=== PATIENT | female | born 1950 | race Hispanic/Latino ===

== ENCOUNTER → 2017-11-23 | Outpatient (CLI) | payer OTHER | LOC: RAH 11:28 | PROVIDERS: ATTEND Family Medicine | DX: R10.32 Left lower quadrant pain (principal); Z90.710 Acquired absence of both cervix and uterus | CPT/HCPCS: 76856 ==

== ENCOUNTER → 2017-12-13 | Outpatient (CLI) | payer OTHER | END | disposition home or self-care (01) | LOC: RAH 09:21 | PROVIDERS: ATTEND Family Medicine | DX: Z12.31 Encounter for screening mammogram for malignant neoplasm of breast (principal) | CPT/HCPCS: 77067 ==

== ENCOUNTER → 2018-01-05 | Outpatient (CLI) | payer OTHER | END | disposition home or self-care (01) | LOC: OIH 16:19 | PROVIDERS: ATTEND Family Medicine | DX: Z01.818 Encounter for other preprocedural examination (principal); I70.0 Atherosclerosis of aorta | CPT/HCPCS: 71046 ==

== ENCOUNTER → 2018-05-23 | Outpatient (CLI) | payer OTHER | END | disposition home or self-care (01) | LOC: RAH 12:28 | PROVIDERS: ATTEND Family Medicine | DX: M47.892 Other spondylosis, cervical region (principal); M43.22 Fusion of spine, cervical region; K21.9 Gastro-esophageal reflux disease without esophagitis; M17.0 Bilateral primary osteoarthritis of knee; I10 Essential (primary) hypertension | CPT/HCPCS: 72040; 74220 ==

== ENCOUNTER → 2018-06-14 | Outpatient (CLI) | payer OTHER | END | disposition home or self-care (01) | LOC: RAH 10:09 | PROVIDERS: ATTEND Internal Medicine Gastroenterology | DX: R13.12 Dysphagia, oropharyngeal phase (principal); R63.3 Feeding difficulties | CPT/HCPCS: 74230 ==

== ENCOUNTER → 2018-09-07 | Outpatient (CLI) | payer OTHER | END | disposition home or self-care (01) | LOC: RAH 17:11 | PROVIDERS: ATTEND Family Medicine | DX: M25.512 Pain in left shoulder (principal) | CPT/HCPCS: 73030 ==

== ENCOUNTER → 2019-01-20 | Outpatient (CLI) | payer OTHER | END | disposition home or self-care (01) | LOC: RAH 10:00 | PROVIDERS: ATTEND Family Medicine | DX: Z12.31 Encounter for screening mammogram for malignant neoplasm of breast (principal) | CPT/HCPCS: 77067 ==

== ENCOUNTER → 2019-02-09 | Outpatient (CLI) | payer OTHER ==
[~2019-02-09] MED LIST: REGADENOSON 0.4 MG/5 ML PF SYG IVP SCH
== END | disposition home or self-care (01) ==
LOC: RAH 09:16
PROVIDERS: ATTEND Family Medicine
DX: I20.9 Angina pectoris, unspecified (principal); I10 Essential (primary) hypertension
CPT/HCPCS: 78452; 93017; 96374; A9500 ×2; J2785

== ENCOUNTER → 2019-02-16 | Outpatient (CLI) | payer OTHER | END | disposition home or self-care (01) | LOC: RAH 08:54 | PROVIDERS: ATTEND Family Medicine | DX: I11.9 Hypertensive heart disease without heart failure (principal) | CPT/HCPCS: 93306 ==

== ENCOUNTER → 2019-02-27 | Outpatient (CLI) | payer OTHER ==
[~2019-02-27] MED LIST changes: -REGADENOSON 0.4 MG/5 ML PF SYG IVP SCH; +SODIUM CHLORIDE 0.9% 1000ML 1,000 ML IV ONE
== END | disposition home or self-care (01) ==
LOC: RAH 13:54
PROVIDERS: ATTEND Neurological Surgery
DX: M50.323 Other cervical disc degeneration at C6-C7 level (principal); M47.892 Other spondylosis, cervical region; M25.48 Effusion, other site; I11.9 Hypertensive heart disease without heart failure
CPT/HCPCS: 72125; 72141; J7030

== ENCOUNTER 2019-03-24 08:57 | Day surgery (SDC) | payer OTHER ==
[2019-03-21 12:26] VITALS: BP 142/80
[2019-03-21 12:27] LABS: BASOPHILS % (AUTO) 0.7 % (0.0-5.0); EOSINOPHILS % (AUTO) 2.8 % (0.0-8.0); HEMATOCRIT 37.4 % (36-48); MEAN CORPUSCULAR HEMOGLOBIN 29.5 pg (27.0-33.0); MEAN CORPUSCULAR HGB CONC 33.3 g/dL (32.0-36.0); MEAN CORPUSCULAR VOLUME 88.5 fL (79-99); MONOCYTES % (AUTO) 7.5 % (3.0-13.0); PLATELET COUNT (AUTO) 257 K/uL (130-400); RED BLOOD CELL COUNT(AUTO) 4.22 MIL/uL (4.00-5.50); RED CELL DISTRIBUTION WIDTH 13.9 % (11.0-15.5); WHITE BLOOD COUNT (AUTO) 6.2 K/uL (4.8-10.8)
[2019-03-21 12:29] LABS: APPEARANCE,URINE Clear (CLEAR); BILIRUBIN,URINE Negative (NEGATIVE); COLOR,URINE Yellow (YELLOW); GLUCOSE, URINE (UA) Negative (NEGATIVE); KETONES,URINE Negative (NEGATIVE); LEUKOCYTE ESTERASE ,URINE Negative (NEGATIVE); NITRATE,URINE Negative (NEGATIVE); OCCULT BLOOD,URINE Negative (NEGATIVE); PROTEIN,URINE Negative (NEGATIVE); UROBILINOGEN,URINE 0.2 mg/dL (0.2-1.0)
[2019-03-21 12:35] LABS: CREATININE 0.7 mg/dL (0.5-1.5); POTASSIUM 3.7 mmol/L (3.5-5.1)
[2019-03-21 12:39] LABS: INR 0.99 (0.85-1.15); PARTIAL THROMBOPLASTIN TIME 27.5 SEC (26.3-35.5); PROTHROMBIN TIME 10.4 SEC (9.6-11.6)
--- NOTE | 2019-03-21 12:50 | NUR ---
allergies informed yvette carrillo of pt being allergic to iodine and methylprednisolone. she will inform dr. dueñas and call me back.
--- NOTE | 2019-03-23 13:18 | NUR ---
ALLERGIES: SPOKE WITH DR. CHANDNI TREJO/ CHRISTINA " STATED IT'S OK TO GIVE SOLU MEDROL IV. DAY OF PROCEDURE.
[~2019-03-24] VITALS: Ht 147.3 cm; Wt 58.9 kg
[2019-03-24] VITALS (14 sets, daily range): BP systolic 142–180; BP diastolic 63–86
[~2019-03-24 08:57] MED LIST changes: +ALPR0.255 PO; +METHYLPREDNISOLONE SOD SUCC 125MG/2ML VIAL IVP PRN; +NIFE30TA98 PO; +OXYB5TAB10 PO; +PHARMACY COMMUNICATION MISC SCH; +SODI30SP3 NS
[2019-03-24] MEDS ORDERED: PHARMACY COMMUNICATION MISC SCH (09:25)
--- NOTE | 2019-03-24 09:29 | NUR ---
SPOKE TO DR. LOPEZ, HE STATED HE CLARIFIED PT NOT ALLERGIC TO METHYLPREDNISOLONE.
[2019-03-24] MEDS ORDERED: METHYLPREDNISOLONE SOD SUCC 125MG/2ML VIAL ONE (11:48)
[2019-03-24] MEDS ORDERED: VERAPAMIL HCL 2.5 MG/ML VIAL ONE (11:57)
[2019-03-24] MEDS ORDERED: FENTANYL CITRATE PF 50 MCG/1 ML 2ML VIAL ONE (11:57)
[2019-03-24] MEDS ORDERED: MIDAZOLAM HCL 1 MG/ML 2ML VIAL ONE (11:57)
[2019-03-24] MEDS ORDERED: IOHEXOL-350 50ML VIAL IV ONE (11:57)
[2019-03-24] MEDS ORDERED: LIDOCAINE HCL 1% 20 ML VIAL ONE (11:57)
[2019-03-24] MEDS ORDERED: NITROGLYCERIN 5 MG/ML 10 ML VIAL IV ONE (11:57)
[2019-03-24] MEDS ORDERED: HEPARIN SODIUM 1000UNIT/ML 10ML VIAL ONE (11:57)
[2019-03-24] MEDS ORDERED: IOHEXOL-350 75 ML VIAL IV ONE (12:02)
[2019-03-24] MEDS ORDERED: ATROPINE SULFATE 0.1 MG/ML 10 ML SYG IVP ONE (12:35)
[2019-03-24] MEDS ORDERED: SODIUM CHLORIDE 0.9% 1000ML 1,000 ML IV SCH (12:55)
--- NOTE | 2019-03-24 16:30 | NUR ---
BLEEDING INFORMED NEIL DELAROSA OF PT BLEEDING TO SITE AFTER TRBAND REMOVED. ORDERS RECEIVED TO APPLY MANUAL PRESSURE, RE-APPLY TRBAND, AND INFORM DR. LOPEZ OF SITUATION.
--- NOTE | 2019-03-24 16:35 | NUR ---
PAGED DR. LOPEZ PAGED. WILL AWAIT RESPONSE.
--- NOTE | 2019-03-24 19:30 | NUR ---
NURSING PT ARRIVED FROM [facility] IN BY BED, OLIVIER, [id number]. C/O PAIN TO RT WRIST, RADIAL BAND IN PLACE NO ACTIVE BLEEDING OR HEMATOMA TO RT WRIST. FOLLOWED PROTOCOL FOR RADIAL BAND REMOVAL: RADIAL BAND HAS 14CC AIR IN BAND: RELEASED 2ML Q 15 MINS : 1400- 1415 1430 1445 1500 1515 1530 APPLIED 4X4 GAUZE AND DRESSING TO RT WRIST, NO BLEEDING OR HEMATOMA AT 1630: PT SITTING UP AT BEDSIDE, READY FOR D/C, PT DRESSING AT BEDSIDE, RADIAL SITE BEGAN OOZING WHILE PT WAS PUTTING ON HER BRA AND SHIRT, REBEKAH SNOW ASSISTING PT AT TIME OF INCIDENT. PT ALERT STABLE, STATED HER RT HAND HURTS. REMOVED DRESSING, ACTIVE BLEEDING WAS NOTED, NO HEMATOMA, MILD BRUISING AROUND PUNCTURE SITE. HOLDING MANUAL PRESSURE TO SITE FROM [id number]. CALLED [facility], DION NARANJO CAME TO ROOM, ASSESSED PT , RE-APPLIED TR-BAND AT 1647 WITH 10CC AIR. 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 WAS INSTRUCTED TO FOLLOW RADIAL BAND REMOVAL PROTOCOL, MONITOR PT THEN NOTIFY HER IF ANY ACTIVE BLEEDING AGAIN ONCE BAND IS REMOVED BEFORE PT IS DISCHARGED HOME. RELEASED 2ML Q 15 MIN: 1808- 1823 1838 1853 ON ASSESSMENT: RT WRIST HAS NO BLEEDING OR HEMATOMA, BRUISING NOTED TO PUNCTURE SITE AND ABOVE WHERE BAND WAS PLACED. MARKED WRIST BRUISES. APPLY 4X4 GAUZE AND KERLIX WRAP TO RT WRIST. PT STABLE, C/O OF MILD DISCOMFORT TO WRIST. ELEVATED RT HAND ON PILLOW AND APPLIED ICE PACK. REPORTED PROGRESS TO Carley BEAN NP AT 1925, PT OK TO BE DISCHARGED. POST CARE INSTRUCTIONS AND PRESCRIPTIONS GIVEN TO SONS. INSTRUCTED TO MONITOR RT WRIST/ARM CLOSELY, CONTINUE TO ELEVATE AND APPLY ICE NEEDED TODAY, INSTRUCTED ABSOLUTELY NO PRESSURE TO MANIPULATION WITH RT HAND UNTIL TOMORROW MORNING. INSTRUCTED SONS TO TAKE PT TO ER IMMEDIATELY IF ACTIVE BLEEDING OCCURS OR HEMATOMA. BOTH SONS VERBALIZED UNDERSTANDING. PT PLACED IN WHEELCHAIR , DRIVEN HOME BY SON.
== END 2019-03-24 19:30 | disposition home or self-care (01) ==
LOC: DAH 08:57
PROVIDERS: ATTEND Internal Medicine Cardiovascular Disease
DX: I25.118 Atherosclerotic heart disease of native coronary artery with other forms of angina pectoris (principal); I10 Essential (primary) hypertension; M19.90 Unspecified osteoarthritis, unspecified site; Z88.1 Allergy status to other antibiotic agents; Z88.3 Allergy status to other anti-infective agents; Z88.8 Allergy status to other drugs, medicaments and biological substances; Z79.899 Other long term (current) drug therapy; Z98.890 Other specified postprocedural states; Z82.49 Family history of ischemic heart disease and other diseases of the circulatory system; Z83.3 Family history of diabetes mellitus; Z79.01 Long term (current) use of anticoagulants
CPT/HCPCS: 36415; 71045; 80048; 81003; 85025; 85610; 85730; 93005; 93458; A4606; C1769 ×3; C1894 ×2; J1644 ×2; J2250; J2930; J3010; J3490 ×2; J7030; Q9967 ×2; 99156; 99157; J0461

== ENCOUNTER → 2019-03-30 | Outpatient (CLI) | payer OTHER ==
[~2019-03-30] MED LIST changes: +CIPR7.5D OT; +CYCL30DR OP; -METHYLPREDNISOLONE SOD SUCC 125MG/2ML VIAL IVP PRN; +NITR0.4T50 SL; -PHARMACY COMMUNICATION MISC SCH; -SODIUM CHLORIDE 0.9% 1000ML 1,000 ML IV ONE
== END | disposition home or self-care (01) ==
LOC: OIH 09:28
PROVIDERS: ATTEND Family Medicine
DX: I10 Essential (primary) hypertension (principal); M47.815 Spondylosis without myelopathy or radiculopathy, thoracolumbar region
CPT/HCPCS: 71046

== ENCOUNTER → 2019-05-25 | Outpatient (CLI) | payer OTHER ==
[~2019-05-25] MED LIST changes: +ACET-66 PO; +AEC81 PO; -ALPR0.255 PO; +AMIO200T44 PO; +DOCU-275 PO; +FURO20TA6 PO; +METO25TA6 PO; -NIFE30TA98 PO; -NITR0.4T50 SL; -OXYB5TAB10 PO; +OXYB5TAB15 PO; +TRAM50TA4 PO
== END | disposition home or self-care (01) ==
LOC: SHCH 07:52
PROVIDERS: ATTEND Family Medicine
DX: I50.22 Chronic systolic (congestive) heart failure (principal); R06.02 Shortness of breath
CPT/HCPCS: 70220; 71046; 78481; A9512

== ENCOUNTER → 2019-09-11 | Outpatient (CLI) | payer OTHER ==
[~2019-09-11] VITALS: Ht 149.9 cm; Wt 61.2 kg
[~2019-09-11] MED LIST changes: +REGADENOSON 0.4 MG/5 ML PF SYG IVP SCH
== END | disposition home or self-care (01) ==
LOC: SHCH 08:21
PROVIDERS: ATTEND Internal Medicine Cardiovascular Disease
DX: R07.9 Chest pain, unspecified (principal); R06.00 Dyspnea, unspecified; R51 Headache; R00.0 Tachycardia, unspecified
CPT/HCPCS: 78452; 93017; 96374; A9500 ×2; J2785

== ENCOUNTER → 2020-02-14 | Outpatient (CLI) | payer OTHER ==
[~2020-02-14] MED LIST changes: -REGADENOSON 0.4 MG/5 ML PF SYG IVP SCH
== END | disposition home or self-care (01) ==
LOC: OIH 13:47
PROVIDERS: ATTEND Family Medicine
DX: M47.812 Spondylosis without myelopathy or radiculopathy, cervical region (principal); M25.512 Pain in left shoulder; I70.0 Atherosclerosis of aorta
CPT/HCPCS: 72040; 73030

== ENCOUNTER → 2020-09-10 | Outpatient (CLI) | payer OTHER, MEDICARE | END | disposition home or self-care (01) | LOC: OIH 11:02 | PROVIDERS: ATTEND Family Medicine | DX: S81.801A Unspecified open wound, right lower leg, initial encounter (principal); I70.201 Unspecified atherosclerosis of native arteries of extremities, right leg; M19.071 Primary osteoarthritis, right ankle and foot; X58.XXXA Exposure to other specified factors, initial encounter; Y93.89 Activity, other specified; Y92.89 Other specified places as the place of occurrence of the external cause; Y99.8 Other external cause status | CPT/HCPCS: 73590 ==

== ENCOUNTER → 2020-10-23 | Outpatient (CLI) | payer OTHER, MEDICARE | END | disposition home or self-care (01) | LOC: RAH 13:50 | PROVIDERS: ATTEND Internal Medicine Cardiovascular Disease | DX: M47.816 Spondylosis without myelopathy or radiculopathy, lumbar region (principal) | CPT/HCPCS: 71250; 72100 ==

== ENCOUNTER → 2020-12-12 | Outpatient (CLI) | payer OTHER, MEDICARE | END | disposition home or self-care (01) | LOC: OIH 09:04 | PROVIDERS: ATTEND Family Medicine | DX: M43.13 Spondylolisthesis, cervicothoracic region (principal); M89.48 Other hypertrophic osteoarthropathy, other site | CPT/HCPCS: 72040 ==

== ENCOUNTER → 2021-02-10 | Outpatient (CLI) | payer OTHER, MEDICARE | END | disposition home or self-care (01) | LOC: RAH 08:57 | PROVIDERS: ATTEND Internal Medicine | DX: K21.9 Gastro-esophageal reflux disease without esophagitis (principal); R13.10 Dysphagia, unspecified | CPT/HCPCS: 74240 ==

== ENCOUNTER 2021-08-05 08:27 | Day surgery (SDC) | payer OTHER, MEDICARE ==
[~2021-08-05] VITALS: Ht 154.9 cm; Wt 65.3 kg
[~2021-08-05 08:27] MED LIST changes: +0.9%NACL 1000ML 1,000 ML IV ONE; -ACET-66 PO; -AMIO200T44 PO; +ASPI-1197 PO; -CIPR7.5D OT; -CYCL30DR OP; -DOCU-275 PO; -FURO20TA6 PO; +LOSA25TA41 PO; -OXYB5TAB15 PO; +ROSU10TA28 PO; -SODI30SP3 NS; +SUCR1TAB2 PO; -TRAM50TA4 PO; +UBID100C10 PO
[2021-08-05 09:33] VITALS: BP 162/88
[2021-08-05] MEDS ORDERED: PROPOFOL 10 MG/ML 20ML VIAL IV ONE (10:29)
[2021-08-05 10:50] VITALS: BP 108/57
[2021-08-05 11:00] VITALS: BP 133/70
[2021-08-05 11:12] VITALS: BP 129/71
== END 2021-08-05 11:18 | disposition home or self-care (01) ==
LOC: ENDO 08:27 → DAH 08:27 → ENDO 11:18
PROVIDERS: ATTEND Internal Medicine Gastroenterology
DX: R10.13 Epigastric pain (principal); Z20.822 Contact with and (suspected) exposure to COVID-19; K25.3 Acute gastric ulcer without hemorrhage or perforation; R13.10 Dysphagia, unspecified; K22.89 Other specified disease of esophagus; K21.9 Gastro-esophageal reflux disease without esophagitis; K31.89 Other diseases of stomach and duodenum; K76.0 Fatty (change of) liver, not elsewhere classified; I10 Essential (primary) hypertension; I25.10 Atherosclerotic heart disease of native coronary artery without angina pectoris; F41.9 Anxiety disorder, unspecified; Z90.710 Acquired absence of both cervix and uterus; Z98.1 Arthrodesis status; Z95.1 Presence of aortocoronary bypass graft; Z88.0 Allergy status to penicillin; Z88.8 Allergy status to other drugs, medicaments and biological substances; Z88.1 Allergy status to other antibiotic agents; Z88.3 Allergy status to other anti-infective agents; Z86.010 Personal history of colon polyps; Z98.49 Cataract extraction status, unspecified eye; Z98.890 Other specified postprocedural states; Z83.3 Family history of diabetes mellitus; Z82.49 Family history of ischemic heart disease and other diseases of the circulatory system; Z80.0 Family history of malignant neoplasm of digestive organs; Z79.82 Long term (current) use of aspirin
CPT/HCPCS: 43239; 87635; 88305; 88342; A4215 ×2; A4221; A4222; A4223; A4606; A4620; A4663; C9803; J2704; J7030

== ENCOUNTER → 2021-10-13 | Outpatient (CLI) | payer OTHER, MEDICARE ==
[~2021-10-13] MED LIST changes: -0.9%NACL 1000ML 1,000 ML IV ONE; -AEC81 PO
== END | disposition home or self-care (01) ==
LOC: RAH 11:42
PROVIDERS: ATTEND Family Medicine
DX: M47.812 Spondylosis without myelopathy or radiculopathy, cervical region (principal); M43.5X2 Other recurrent vertebral dislocation, cervical region; R07.82 Intercostal pain; Z98.1 Arthrodesis status
CPT/HCPCS: 71100; 72040

== ENCOUNTER 2021-11-09 13:01 | Emergency (ER) | payer OTHER, MEDICARE ==
[~2021-11-09] VITALS: Ht 152.4 cm; Wt 62.6 kg
[2021-11-09] MEDS ORDERED: NIFEDIPINE 10 MG CAP PO SCH (13:30)
[2021-11-09 13:31] LABS: BASOPHILS % (AUTO) 0.5 % (0.0-5.0); EOSINOPHILS % (AUTO) 2.3 % (0.0-8.0); HEMATOCRIT 41.5 % (36-48); LYMPHOCYTES % (AUTO) 25.7 % (21.0-51.0); MEAN CORPUSCULAR HEMOGLOBIN 28.9 pg (27.0-33.0); MEAN CORPUSCULAR HGB CONC 32.8 g/dL (32.0-36.0); MEAN CORPUSCULAR VOLUME 88.3 fL (79-99); MONOCYTES % (AUTO) 7.6 % (3.0-13.0); NEUTROPHILS % (AUTO) 63.6 % (40.0-77.0); PLATELET COUNT (AUTO) 245 K/uL (130-400); WHITE BLOOD COUNT (AUTO) 6.6 K/uL (4.8-10.8)
[2021-11-09 13:53] LABS: CREATININE 0.6 mg/dL (0.5-1.5); POTASSIUM 3.7 mmol/L (3.5-5.1)
[2021-11-09 14:05] LABS: ALBUMIN 3.8 g/dL (3.5-5.0); BILIRUBIN,TOTAL 0.6 mg/dL (0.2-1.0)
[2021-11-09 14:07] LABS: APPEARANCE,URINE Clear (CLEAR); BILIRUBIN,URINE Negative (NEGATIVE); COLOR,URINE Yellow (YELLOW); GLUCOSE, URINE (UA) Negative (NEGATIVE); KETONES,URINE Negative (NEGATIVE); LEUKOCYTE ESTERASE ,URINE Trace (NEGATIVE); NITRATE,URINE Negative (NEGATIVE); OCCULT BLOOD,URINE Negative (NEGATIVE); PH,URINE 6.5 (5.0-8.0); PROTEIN,URINE Negative (NEGATIVE); UROBILINOGEN,URINE 0.2 mg/dL (0.2-1.0)
[2021-11-09 14:21] VITALS: BP 134/64
[2021-11-09 14:27] LABS: BACTERIA,URINE Rare /HPF (None Seen); RBC,URINE 0-1 /HPF (0-1); WBC,URINE 0-1 /HPF (0-1)
== END 2021-11-09 15:28 | disposition home or self-care (01) ==
LOC: EDH 13:01
DX: H11.31 Conjunctival hemorrhage, right eye (principal); I10 Essential (primary) hypertension; Z88.0 Allergy status to penicillin; Z88.1 Allergy status to other antibiotic agents; Z88.8 Allergy status to other drugs, medicaments and biological substances; Z79.899 Other long term (current) drug therapy; Z79.82 Long term (current) use of aspirin; Z98.890 Other specified postprocedural states
CPT/HCPCS: 36415; 70450; 80053; 81001; 82948; 84484; 85025; 93005

== ENCOUNTER → 2022-07-01 | Outpatient (CLI) | payer OTHER, MEDICARE | END | disposition home or self-care (01) | LOC: RAH 09:40 | PROVIDERS: ATTEND Family Medicine | DX: R10.2 Pelvic and perineal pain (principal); D35.02 Benign neoplasm of left adrenal gland; Z90.710 Acquired absence of both cervix and uterus | CPT/HCPCS: 76700; 76856 ==

== ENCOUNTER 2023-02-23 13:21 | Emergency (ER) | payer OTHER, MEDICARE ==
[~2023-02-23] VITALS: Ht 149.9 cm; Wt 61.7 kg
[2023-02-23 14:30] VITALS: BP 144/67
[2023-02-23] MEDS ORDERED: MUPI22OI2 TP (14:59)
[2023-02-23] MEDS ORDERED: SUCR1TAB28 PO (14:59)
== END 2023-02-23 15:30 | disposition home or self-care (01) ==
LOC: EDH 13:21
DX: S81.812A Laceration without foreign body, left lower leg, initial encounter (principal); K29.70 Gastritis, unspecified, without bleeding; I10 Essential (primary) hypertension; Z79.82 Long term (current) use of aspirin; Z79.899 Other long term (current) drug therapy; Z90.710 Acquired absence of both cervix and uterus; Z98.890 Other specified postprocedural states; Z95.1 Presence of aortocoronary bypass graft; Z88.0 Allergy status to penicillin; Z88.1 Allergy status to other antibiotic agents; Z88.8 Allergy status to other drugs, medicaments and biological substances; Z91.040 Latex allergy status; W18.39XA Other fall on same level, initial encounter; Y93.89 Activity, other specified; Y92.89 Other specified places as the place of occurrence of the external cause; Y99.8 Other external cause status

== ENCOUNTER → 2023-10-29 | Outpatient (CLI) | payer OTHER, MEDICARE ==
[~2023-10-29] MED LIST changes: +MUPI22OI2 TP; +SUCR1TAB28 PO
[2023-10-29 12:23] LABS: CHOLESTEROL 211 mg/dL (<200); HDL CHOLESTEROL 77 mg/dL (35-85); LDL DIRECT 127 mg/dL (0-99); TRIGLYCERIDES 46 mg/dL (30-200)
== END | disposition home or self-care (01) ==
LOC: LAB 10:04
PROVIDERS: ATTEND Internal Medicine Cardiovascular Disease
DX: E78.5 Hyperlipidemia, unspecified (principal)
CPT/HCPCS: 36415; 80061

== ENCOUNTER → 2024-10-27 | Outpatient (CLI) | payer OTHER, MEDICARE ==
[~2024-10-27] MED LIST changes: +ACET-2893 PO; +DICL20GE TP; +LIDO700A30 TP; -ROSU10TA28 PO; +ROSU10TA72 PO
--- NOTE | 2024-10-27 15:16 | HMCIMG ---
PA AND LATERAL CHEST RADIOGRAPH INDICATION: COUGH X 1 MONTH COMPARISON: 04/29/2021 FINDINGS: Median sternotomy wires as well as fixation plates and screws are in appropriate alignment. Heart size is normal. Mild calcific plaque is present along the aortic arch westfall. The pulmonary vascularity and ann appear normal. No abnormal pulmonary parenchymal opacity or consolidation identified. No significant pleural effusion noted. No pneumothorax detected. Mild thoracic spondylosis. IMPRESSION: No radiographic evidence for any acute cardiopulmonary process.
== END | disposition home or self-care (01) ==
LOC: RAH 14:14
PROVIDERS: ATTEND Family Medicine
DX: J20.9 Acute bronchitis, unspecified (principal); R05.9 Cough, unspecified; I70.0 Atherosclerosis of aorta; M47.814 Spondylosis without myelopathy or radiculopathy, thoracic region
CPT/HCPCS: 71046

== ENCOUNTER → 2024-12-13 | Outpatient (CLI) | payer OTHER, MEDICARE ==
--- NOTE | 2024-12-13 15:24 | HMCIMG ---
Exam Type: FOOT COMP 3+VWS LT Clinical Information: Pain in left foot Comparison: None Findings: The examination is unremarkable except for calcaneal spurs. No fractures or dislocations are seen. No radiopaque foreign bodies are noted. Soft tissues are preserved. IMPRESSION: Calcaneal spurs.
== END | disposition home or self-care (01) ==
LOC: RAH 14:19
PROVIDERS: ATTEND Family Medicine
DX: M77.32 Calcaneal spur, left foot (principal); M79.672 Pain in left foot
CPT/HCPCS: 73630

== ENCOUNTER 2025-05-14 10:27 | Emergency (ER) | payer OTHER, MEDICARE ==
[~2025-05-14] VITALS: Ht 149.9 cm; Wt 64.9 kg
[2025-05-14 11:20] VITALS: BP 197/80; PULSE 77; RESP 16; TEMP 97.9; O2SAT 76
[2025-05-14] MEDS ORDERED: DIPHTH,PERTUSS(ACELL),TET VAC 0.5 ML SYG IM ONE (11:30)
--- NOTE | 2025-05-14 11:37 | ERN ---
General Chief Complaint: Abrasion Stated Complaint: RT LEG SKIN TEAR Time Seen by MD: 10:30 Source: patient History of Present Illness Initial Comments This patient is a 74-year-old female who presented with complaint of laceration in the right lower leg. 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 She has an open wound on the right lower extremity. Timing/Duration: 1/2 hour Severity: mild Allergies: Coded Allergies: Penicillins (Unverified Allergy, Unknown, 03/21/19) azithromycin (Unverified Allergy, Unknown, 03/21/19) esomeprazole (Unverified Allergy, Unknown, 03/21/19) fluoxetine (Unverified Allergy, Unknown, 03/21/19) iodine (Unverified Allergy, Unknown, 03/21/19) levofloxacin (Unverified Allergy, Unknown, RASH, 08/05/21) methylprednisolone (Unverified Allergy, Unknown, 09/04/21) Home Meds Active Scripts Acetaminophen (Acetaminophen ER) 650 Mg Tablet.er, 650 MG PO TID for 7 Days, #21 TAB Prov:LUZ MARINA MENDOZA 11/05/23 Diclofenac Sodium (Voltaren Arthritis Pain) 1 % Gel..gram., 2 GM TP TID, #30 G Prov:LUZ MARINA MENDOZA 11/05/23 Lidocaine (Lidocaine) 5 % Adh..patch, 1 EACH TP DAILY for 7 Days, #7 ADH.PATCH Prov:LUZ MARINA MENDOZA 11/05/23 Sucralfate (Carafate) 1 Gm Tablet, 1 GM PO QID for 30 Days, #60 TAB Prov:ARACELY SHAH MD 02/23/23 Mupirocin (Mupirocin Ointment) 22 Gm Oint, 22 GM TP QID for 10 Days, #22 APPL Prov:ARACELY SHAH MD 02/23/23 Metoprolol Tartrate (Metoprolol Tartrate) 25 Mg Tablet, 12.5 MG PO BID for 30 Days, #30 TAB 3 Refills Prov:LAOTNYA BRYAN MD 04/10/19 Reported Medications Sucralfate (Sucralfate) 1 Gm Tablet, 1 GM PO TID, TAB 08/04/21 Ubidecarenone (Coq-10) 100 Mg Capsule, 100 MG PO HS, CAP 08/04/21 Aspirin (Aspirin) 81 Mg Tab.chew, 81 MG PO DAILY, TAB.CHEW 08/04/21 Losartan Potassium (Losartan Potassium) 25 Mg Tablet, 25 MG PO DAILY, TAB 08/04/21 Rosuvastatin Calcium (Rosuvastatin Calcium) 10 Mg Tablet, 10 MG PO HS, TAB 08/04/21 Past Medical History Past Medical History: High Cholesterol, Heart Disease, Hypertension, Vascular Disease Past Surgical History: Hysterectomy, CABG, Other Surgical History Other: NECK, HERNIA Social History Social History: Negative, Lives with family Female( History) History: Not Applicable Constitutional: (-) chills, (-) diaphoresis, (-) fever, (-) malaise, (-) weakness, (-) other documentation EENTM: (-) eye pain, (-) blurred vision, (-) tearing, (-) double vision, (-) ear pain, (-) ear discharge, (-) nose pain, (-) nose congestion, (-) throat pain, (-) Throat swelling, (-) mouth pain, (-) tooth pain, (-) mouth swelling, (-) other documentation Respiratory: (-) cough, (-) orthopnea, (-) short of breath, (-) stridor, (-) wheezing, (-) other documentation Cardiovascular: (-) chest pain, (-) edema, (-) palpitations, (-) syncope, (-) dyspnea on exertion, (-) other documentation Gastrointestinal/Abdominal: (-) nausea, (-) vomiting, (-) diarrhea, (-) abdominal pain, (-) abdominal distention, (-) constipation, (-) rectal bleeding, (-) dark stool/melena, (-) other documentation Skin: (+) laceration Neuro: (-) altered mental status, (-) headache, (-) syncope, (-) paralysis, (-) numbness, (-) seizure, (-) pre-existing deficit, (-) tremors, (-) weakness, (-) dizziness, (-) slurred speech, (-) vertigo, (-) other documentation Physical Exam General Appearance: (+) mild distress Orientation: (+) alert, (+) oriented x 3 Ear, Nose, Throat: (+) hearing grossly normal, (+) normal ENT inspection, (+) moist mucous membraine Neck: (+) normal inspection, (+) supple, (+) full range of motion Respiratory: (+) chest non-tender Heart: (+) regular Vascular: (+) no edema Gastrointestinal: (+) soft Extremities: (+) other (Laceration) Neurologic/Psychiatric: (+) normal speech, (+) no motor defecits, (+) no sensor y deficits MDM This patient is a 74-year-old female who presented with complaint of laceration in the right lower leg. 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 She has an open wound on the right lower extremity. Procedure The area was cleansed thoroughly with wound cleanser and standard sterile technique was maintained. Local anesthesia was administered as indicated for patient comfort. The wound was closed with sutures. Wound edges were approximated with minimal tension as appropriate. The area was covered with semi occlusive dressing to maintain a moist environment and reduce infection risk. Patient was also given a Td booster. ED Course Orders Procedure Category Date Status Time Diphth,Pertuss(Acell),Tet PHA 05/14/25 Complete Vac (Boostrix 11:30 Tetanus,Diphtheria PHA 05/14/25 Complete Tox [Adult] (Diphther 12:00 Current Medications Medications (Trade) Dose Ordered Sig/Trever Route PRN Reason Start Time Stop Time Status Last Admin Dose Admin Tetanus/ Diphtheria Toxoids Adsorbed (DiphthERIA-teTANUS TOXOID [ADULT]/ DECAVAC) 0.5 ml ONCE ONCE IM 05/14/25 12:00 05/14/25 12:01 DC 05/14/25 11:57 Vital Signs Date Time Temp Pulse Resp B/P (MAP) Pulse Ox O2 Delivery O2 Flow Rate FiO2 05/14/25 11:20 97.9 77 16 197/80 76 Room Air* 0 21 05/14/25 10:29 97.9 77 16 193/74 97 Room Air 0 Laceration/Wound Repair Laceration/Wound Repair : Wound Location: lower extremity Wound Length (cm): 3 Wound's Depth, Shape: superficial Wound Explored: clean Irrigated w/ Saline (ccs): 100 Anesthesia: 1% Lidocaine Wound Debrided: moderate Wound Repaired With: sutures Suture Size/Type: 3:0 Number of Sutures: 1 Layer Closure?: No Sterile Dressing Applied?: Yes DX & DISP Disposition: Discharge Departure Impression: Primary Impression: Laceration of right lower extremity Condition: Stable Additional Instructions: You suffered a laceration of right lower extremity for which skin was sutured together and dressing was applied. Keep the wound covered and clean. Keep dressing over the wound for at least 2-3 days. Go to your primary care physician after 10 days for removal of sutures. Referrals: CHARLENE MARIE MD (PCP) Time of Disposition: 11:36 I have reviewed the case, and I agree with, Diagnosis and Plan I have examined patient, & reviewed all documents, & agreed W/ the Diagnosis, and Plan ATTESTATION BY PHYSICIAN I have seen and examined the patient. I reviewed the documentation, medical decision making, and treatment plan as noted by the resident provider above. I agree with the findings and plan of care. ANGELICA GILMORE MUHAMMAD H MD May 14, 2025 11:37 ANGELICA GILMORE DO May 14, 2025 15:27
== END 2025-05-14 12:08 | disposition home or self-care (01) ==
LOC: EDH 10:27
DX: S81.811A Laceration without foreign body, right lower leg, initial encounter (principal); E78.00 Pure hypercholesterolemia, unspecified; I11.9 Hypertensive heart disease without heart failure; Z79.82 Long term (current) use of aspirin; Z79.899 Other long term (current) drug therapy; Z88.0 Allergy status to penicillin; Z88.1 Allergy status to other antibiotic agents; Z88.8 Allergy status to other drugs, medicaments and biological substances; Z90.710 Acquired absence of both cervix and uterus; Z95.1 Presence of aortocoronary bypass graft; V09.9XXA Pedestrian injured in unspecified transport accident, initial encounter; Y93.89 Activity, other specified; Y92.89 Other specified places as the place of occurrence of the external cause; Y99.8 Other external cause status
CPT/HCPCS: 12002; 36415; 80053; 90471; 90714; 90715; 99283

== ENCOUNTER → 2025-05-14 | Outpatient (CLI) | payer OTHER, MEDICARE ==
[~2025-05-14] MED LIST changes: -ACET-2893 PO; +ACET-3797 PO; -ROSU10TA72 PO; +ROSU10TA98 PO
[2025-05-14 13:34] LABS: CREATININE 0.6 mg/dL (0.5-1.0); GLOMERULAR FILTR. RATE CALC 93.0 mL/min (>90); GLUCOSE,RANDOM 89.0 mg/dL (70-105); UREA NITROGEN, BLOOD 26.0 mg/dL (7-18)
[2025-05-14 13:35] LABS: ASPARTATE AMINOTRANSFERASE 21.0 U/L (10-37); TOTAL PROTEIN, SERUM 7.0 g/dL (6.0-8.3)
[2025-05-14 13:38] LABS: SODIUM SERUM 140.0 mmol/L (136-145)
== END | disposition home or self-care (01) ==
LOC: LAB 12:33
PROVIDERS: ATTEND Family Medicine
DX: I10 Essential (primary) hypertension (principal)
CPT/HCPCS: 36415; 80053

== ENCOUNTER → 2025-05-17 | Outpatient (CLI) | payer OTHER, MEDICARE ==
[~2025-05-17] MED LIST changes: +ROSU10TA72 PO; -ROSU10TA98 PO
--- NOTE | 2025-05-18 06:57 | HMCIMG ---
EXAM: CT Cervical Spine Without IV contrast. CLINICAL HISTORY: Cervicalgia. TECHNIQUE: Axial computed tomography images of the cervical spine without intravenous contrast. Sagittal and coronal reformatted images were generated. COMPARISON: CT cervical spine dated 02/27/2019. FINDINGS: ALIGNMENT: Loss of normal cervical lordosis. Grade 2 anterior listhesis of C7 over T1 by approximately 6 mm secondary to facet joint degeneration and subluxation. Mild dextroscoliotic deformity of the cervical spine with angulation <10???. DEGENERATIVE CHANGES: Postoperative changes of anterior cervical fusion and fixation at C5???C6 level with disc spacer in situ. Ankylosis noted at C6???C7. Multilevel disc desiccation and disc space narrowing at C3???C4 and C4???C5. Anterior and posterior marginal osteophytes are present. Variable uncovertebral and facet joint degeneration from C2???C3 through C7???T1, most pronounced at left C3???C4, C4???C5, and C5???C6 levels, causing neural foraminal stenosis with compressive effect on the exiting nerve roots, predominantly on the left side. Degenerative changes with subchondral cysts, articular margin irregularity, and periarticular osteophytosis noted. 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 SOFT TISSUES: Prevertebral soft tissues are within normal limits. Incidental enlarged left thyroid lobe with a hypodense nodule at the lower pole measuring 2.9 x 2.6 cm with calcification. Additional calcified thyroid nodules are noted. BONES: No acute fracture or aggressive osseous lesion. IMPRESSION: No acute fracture or dislocation in the cervical spine. Grade 2 anterior listhesis of C7 over T1 by approximately 6 mm. Multilevel cervical spondylosis, most severe at C3-C4, C4-C5, and C5-C6 with left-sided neural foraminal stenosis. Postoperative changes of anterior cervical fusion at C5-C6. 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 Left thyroid nodule measuring 2.9 x 2.6 cm with calcification. /Verdi
== END | disposition home or self-care (01) ==
LOC: RAH 10:40
PROVIDERS: ATTEND Family Medicine
DX: M47.812 Spondylosis without myelopathy or radiculopathy, cervical region (principal); M48.02 Spinal stenosis, cervical region; M43.15 Spondylolisthesis, thoracolumbar region; M43.8X2 Other specified deforming dorsopathies, cervical region; M43.22 Fusion of spine, cervical region; E04.1 Nontoxic single thyroid nodule; M54.2 Cervicalgia; Z98.1 Arthrodesis status
CPT/HCPCS: 72125